=== PATIENT | female | born 2000 | race Caucasian/White ===

== ENCOUNTER 2018-03-19 08:48 | Emergency (ER) | payer MEDICAID ==
[~2018-03-19] VITALS: Ht 172.7 cm; Wt 118.2 kg
[2018-03-19 08:56] VITALS: BP 135/86
== END 2018-03-19 11:05 | disposition home or self-care (01) ==
LOC: ER 08:48
DX: J39.2 Other diseases of pharynx (principal); R07.89 Other chest pain; R50.9 Fever, unspecified; R61 Generalized hyperhidrosis
CPT/HCPCS: 87081; 87880; 99284

== ENCOUNTER 2024-09-14 10:27 | Emergency (ER) | payer BC, MEDICAID ==
[~2024-09-14] VITALS: Ht 170.2 cm; Wt 83.2 kg
[2024-09-14 10:36] VITALS: TEMP 97.6
[2024-09-14 10:44] LABS: BASOPHILS % (AUTO) 0.3 % (0-1); EOSINOPHILS # (AUTO) 0.1 X10'3 (0-0.9); EOSINOPHILS % (AUTO) 1.5 % (0-6); HEMOGLOBIN 13.4 g/dl (12.0-16.0); LYMPHOCYTES # (AUTO) 2.7 X10'3 (1.1-4.8); LYMPHOCYTES % (AUTO) 36.1 % (21-51); MEAN CORPUSCULAR HEMOGLOBIN 28.6 PG (27.0-31.0); MEAN CORPUSCULAR HGB CONC 33.4 g/dL (33.0-36.5); MEAN CORPUSCULAR VOLUME 85.7 FL (78-98); MEAN PLATELET VOLUME 8.3 FL (7.4-10.4); MONOCYTES # (AUTO) 0.8 X10'3 (0-0.9); MONOCYTES % (AUTO) 11.2 % (2-12); NEUTROPHILS # (AUTO) 3.8 X10'3 (1.8-7.7); NEUTROPHILS % (AUTO) 50.9 % (42-75); PLATELET COUNT 293 X10'3 (140-440); RED BLOOD COUNT 4.67 X10'6 (4.20-5.60); WHITE BLOOD COUNT 7.4 X10'3 (4.5-11.0)
--- NOTE | 2024-09-14 11:18 | RADIOLOGY REPORT ---
CHEST RADIOGRAPH Indication: CP Technique: Single frontal view of the chest was obtained Comparison: None FINDINGS: Lines and Tubes: None Lungs: No focal consolidation. Pleura: No effusion. No pneumothorax. Cardiomediastinal contours: Unremarkable Bones: No acute osseous abnormality. IMPRESSION: No acute cardiopulmonary disease.
[2024-09-14 11:47] LABS: ALANINE AMINOTRANSFERASE 25 U/L (12-78); ALBUMIN 3.8 G/DL (3.4-5.0); ALKALINE PHOSPHATASE 52 IU/L (46-116); ANION GAP 8 (8-16); ASPARTATE AMINO TRANSFERASE 13 U/L (10-37); BILIRUBIN,TOTAL 0.3 MG/DL (0.1-1.0); BLOOD UREA NITROGEN 14 MG/DL (7-18); BUN/CREATININE RATIO 21.9 (10.0-20.0); CALCIUM 8.8 MG/DL (8.5-10.1); CHLORIDE 106 MMOL/L (99-107); CREATININE 0.64 MG/DL (0.40-0.90); GLUCOSE 88 MG/DL (70-104); POTASSIUM 3.9 MMOL/L (3.5-5.1); SODIUM 140 MMOL/L (135-145); TOTAL CARBON DIOXIDE 26.3 MMOL/L (24-32); TOTAL PROTEIN 7.8 G/DL (6.4-8.2); eCRCL 130 ML/MIN; eGFR > 90 ML/MIN
[2024-09-14 11:52] LABS: PRO BRAIN NATRIURETIC PEPTIDE < 30 PG/ML (0-125)
[2024-09-14 12:04] VITALS: BP 116/86; PULSE 66; O2SAT 99
--- NOTE | 2024-09-14 12:13 | ELECTROCARDIOGRAPH REPORT ---
[facility] Test Date: 2024-09-14 Test Time: 10:33:19 Pat Name: KIMMY COLLINS Department: EMERGENCY ROOM [id number] Room: Gender: F Absence Management Consultant: ALEXANDREA : 2000 Requested By: DINA BLOCK [facility]: [id number] Reading MD: Dr. Hoang Triplett Measurements Intervals Boomer Rate: 75 P: 26 VA: 135 QRS: 62 QRSD: 85 T: 19 QT: 346 QTc: 387 Interpretive Statements Sinus rhythm Borderline T wave abnormalities Electronically Signed On 09-16-2024 15:44:[address] Hoang Triplett Please click the below link to view image of tracing.
[2024-09-14 13:30] VITALS: RESP 15
--- NOTE | 2024-09-14 13:30 | Physician Documentation ---
History of Present Illness ~ Chief Complaint: Chest Pain Stated Complaint: CHEST PAIN/R ARM PAIN/PAIN IN JAW Time Seen by MD: 10:52 HPI Patient is seen today with complaints of sharp acute chest pain that radiated to her right arm and into her jaw and both ears that started 2 hours ago and lasted for 15 minutes. Patient states this did occur once about a year ago. Patient does admit to family history of cardiac problems and patient states she is concerned for such. She denies any current chest pain or diaphoresis or shortn ess of breath or abdominal pain or nausea, vomiting, diarrhea. Patient has no other concern or complaint at this time. Medication Reconciliation Allergies: Uncoded Allergies: LATEX (Allergy, Severe, rash, 09/14/24) Past Medical History Past Medical History: No Pertinent History Past Surgical History: noncontributory Drug Use: none Physical Exam Vital Signs: Temperature: 97.6, Heart Rate: 66, Respiratory Rate: 15, BP: 116/86, Pulse Oximetry: 99, Weight: 83.180 Oxygen Flow Rate: 0 Progress Results/Orders Results/Orders Completed Orders - JOANNA GASTELUM PAC TSH (09/14/24 12:41) Free T4 (09/14/24 12:41) Vital Signs 09/14/24 09/14/24 10:36 12:04 Temp 97.6 Pulse 72 66 Resp 16 15 B/P (MAP) 147/88 116/86 (96) Pulse Ox 100 99 O2 Flow Rate 0 Laboratory Tests Test 09/14/24 10:34 09/14/24 12:35 White Blood Count 7.4 Red Blood Count 4.67 Hemoglobin 13.4 Hematocrit 40.0 Mean Corpuscular Volume 85.7 Mean Corpuscular Hemoglobin 28.6 Mean Corpuscular Hemoglobin Concent 33.4 Red Cell Distribution Width 14.0 Platelet Count 293 Mean Platelet Volume 8.3 Neutrophils (%) (Auto) 50.9 Lymphocytes (%) (Auto) 36.1 Monocytes (%) (Auto) 11.2 Eosinophils (%) (Auto) 1.5 Basophils (%) (Auto) 0.3 Neutrophils # (Auto) 3.8 Lymphocytes # (Auto) 2.7 Monocytes # (Auto) 0.8 Eosinophils # (Auto) 0.1 Basophils # (Auto) 0.0 CBC Comment Sodium Level 140 Potassium Level 3.9 Chloride Level 106 Carbon Dioxide Level 26.3 Anion Gap 8 Blood Urea Nitrogen 14 Creatinine 0.64 Estimated GFR/1.73 m2 > 90 BUN/Creatinine Ratio 21.9 H Glucose Level 88 Calcium Level 8.8 Total Bilirubin 0.3 Aspartate Amino Transf (AST/SGOT) 13 Alanine Aminotransferase (ALT/SGPT) 25 Alkaline Phosphatase 52 Troponin I High Sensitivity < 4 L < 4 L Troponin I High Sens Percent Delta Troponin I Hi Sens Absolute Change Pro-B-Type Natriuretic Peptide < 30 Total Protein 7.8 Albumin 3.8 Globulin 4.0 Albumin/Globulin Ratio 1.0 L Chemistry Comments Thyroid Stimulating Hormone (TSH) 1.51 Free Thyroxine 0.94 EKG/XRAY/CT/US/VASC/MRI EKG : Additional Comment EKG interpreted by myself today shows normal sinus rhythm, normal rate at 75 beats per minute, no sign of ischemia or ST segment elevations, no axis deviation. Chest X-Ray : Additional Comments Chest x-ray interpreted by myself today shows normal mediastinum, no large infiltrate, no large effusion. DIAGNOSTIC RADIOLOGY Patient: KIMMY COLLINS Medical Record: [id number] [place] : 2000, Age: 24 Sex: Female Location: ER Patient Status: [facility] ER Service Date/Time: 09/14/241035 Ordering Physician: DINA BLOCK DO Exam: CHEST,SINGLE VIEW CHEST RADIOGRAPH Indication: CP Technique: Single frontal view of the chest was obtained Comparison: None FINDINGS: Lines and Tubes: None Lungs: No focal consolidation. Pleura: No effusion. No pneumothorax. Cardiomediastinal contours: Unremarkable Bones: No acute osseous abnormality. IMPRESSION: No acute cardiopulmonary disease. Electronically Signed by:SAAD SANCHEZ MD Date & Time: 09/14/24 1115 Dictated by: SAAD SANCHEZ MD Dictation date and time: 09/14/24 1115 Primary Care Provider: NO PRIMARY CARE PROVIDER cc: DINA BLOCK DO ~ Heart Score: Heart Score Response (Comments) Value History Slightly Suspicious 0 EKG Normal 0 Age <45 0 Risk Factors No known risk factors 0 Troponin Normal limit 0 Total 0 Medical Decision Making Findings Patient is seen today with complaints of sharp acute chest pain that radiated to her right arm and into her jaw and both ears that started 2 hours ago and lasted for 15 minutes. Patient states this did occur once about a year ago. Patient does admit to family history of cardiac problems and patient states she is concerned for such. She denies any current chest pain or diaphoresis or shortness of breath or abdominal pain or nausea, vomiting, diarrhea. Patient has no other concern or complaint at this time. Patient did have labs and chest x-ray and EKG that were all unremarkable. Patient advised that her chest pain was most likely anxiety related or muscu loskeletal related. Patient voiced understanding. Patient will follow up with primary care for management and evaluation of family history of cardiac disease and close monitoring for lipids and diabetes. I strongly advised patient maintain a healthy body weight and exercise and eat healthy regularly. Patient voiced understanding. Shared decision-making utilized today. Departure Disposition: HOME / SELF CARE / HOMELESS Impression: Primary Impression: Chest pain Qualified Codes: R07.89 - Other chest pain Condition: Improved Discharge Instructions: Nonspecific Chest Pain, Adult Additional Instructions: Patient did have labs and chest x-ray and EKG that were all unremarkable. Patient advised that her chest pain was most likely anxiety related or musculoskeletal related. Patient voiced understanding. Patient will follow up with primary care for management and evaluation of family history of cardiac disease and close monitoring for lipids and diabetes. I strongly advised patient maintain a healthy body weight and exercise and eat healthy regularly. Patient voiced understanding. Shared decision-making utilized today. Departure Forms: Excuse form Work or School Excused From: Work Excuse beginning now through the following date: September 14, 2024 Referrals: NO PRIMARY CARE PROVIDER (PCP) Signature Scribe Signature: No scribe Attestation: NO scribe JOANNA GASTELUM September 14, 2024 13:30
[2024-09-14 13:54] LABS: FREE T4 (FREE THYROXINE) 0.94 NG/DL (0.73-1.40); THYROID STIMULATING HORMONE 1.51 ulU/ml (0.34-4.50)
== END 2024-09-14 14:48 | disposition home or self-care (01) ==
LOC: ER 10:27
DX: R07.89 Other chest pain (principal)
CPT/HCPCS: 36415; 71045; 80053; 83880; 84439; 84443; 84484; 85025; 93005; 99285